=== PATIENT | female | born 1965 | race Caucasian/White ===

== ENCOUNTER 2023-02-24 08:20 | Emergency (ER) | payer BC, SELFPAY ==
[2023-02-24 08:29] VITALS: BP 117/70; PULSE 85; RESP 16; TEMP 36.7; O2SAT 98; BMI 22.0
--- NOTE | 2023-02-24 09:07 | ED_ITS ---
HPI - General Adult General Chief complaint: Allergic Reaction Stated complaint: medication side effects Time Seen by Provider: 02/24/23 08:49 History of Present Illness HPI narrative: This 57-year-old female comes in reporting adverse effects from a medication that she took last evening. She has rheumatoid arthritis and is taking Humira and as result of this she has some fungal infections on her skin mostly in her scalp. She also incidentally has a urinary tract infection. She has been taking Diflucan and tolerates this well. She was prescribed griseofulvin and Bactrim recently. She has not taken the Bactrim for her urinary tract infection yet. She did take the antifungal medicine last night at about 6:00 p.m. and this morning she felt like her mouth and face was more puffy. She wanted to come into urgent care but it was not open so she presented here. She states lissette t she is feeling better. Related Data Allergies Allergy/AdvReac Type Severity Reaction Status Date / Time griseofulvin Allergy Intermediate Swelling Verified 02/24/23 08:42 of the Eye Penicillins Allergy Intermediate Rash Verified 02/24/23 08:39 Review of Systems Status of ROS: Reports: 10 or more systems reviewed and unremarkable except as noted in History and below Narrative: Constitutional: No fevers, no weight gain or loss. Eyes: No discharge. No vision changes. HENT: No congestion, no sore throat, no ear pain. Cardiovascular: No chest pain, no palpitations. Respiratory: No shortness of breath, no wheezes, no cough. Gastrointestinal: No abdominal pain, no vomiting, no diarrhea. Genitourinary: Dysuria symptoms related to urinary tract infection. Musculoskeletal: Normal range of motion. Skin: Tinea capitis symptoms. Neurological: No dizziness, weakness, sensory change, speech change. Endo/Heme/Allergies: No bruising or bleeding. No polydipsia. Pysch: no suicidality, no anxiety, no insomnia. All other systems reviewed and are negative. Exam Narrative: Exam Narrative: Constitutional: Well-developed, well-nourished, no acute distress. HEENT: Normocephalic, atraumatic. Neck: Normal range of motion. Nontender. Supple. Heart: Regular. No murmurs. Normal rate. Intact distal pulses. Lungs: Clear to auscultation. No chest discomfort. No wheezes, rhonchi, or rales. Abdomen: Normal bowel sounds. Nontender. No rebound tenderness. Genitalia: Deferred. Back: No midline tenderness. Normal range of motion. Extremities: Normal range of motion. No injury. Skin: Intact. No rash. Warm. No erythema or pallor. Neurologic: No altered sensation. No weakness. Alert and oriented. Psychiatric: No suicidality. No anxiety or depression. No insomnia. Nursing notes and vitals signs are reviewed. Const: Vital Signs, click to edit/add: Vital Signs - 24 hr 02/24/23 08:29 Temperature 98.1 F Pulse Rate [Pulse Oximeter] 85 Respiratory Rate 16 [facility] 117/70 Pulse Oximetry 98 Course Vital Signs Vital signs: Initial Vital Signs Temperature 98.1 F 02/24/23 08:29 Temperature Source Temporal Artery Scan 02/24/23 08:29 Pulse Rate 85 02/24/23 08:29 Respiratory Rate 16 02/24/23 08:29 Blood Pressure 117/70 02/24/23 08:29 Blood Pressure Mean 85 02/24/23 08:29 Pulse Oximetry 98 02/24/23 08:29 Vital Signs Temperature 98.1 F 02/24/23 08:29 Pulse Rate 85 02/24/23 08:29 Respiratory Rate 16 02/24/23 08:29 Blood Pressure 117/70 02/24/23 08:29 Pulse Oximetry 98 02/24/23 08:29 Temperature 98.1 F 02/24/23 08:29 Pulse Rate 85 02/24/23 08:29 Respiratory Rate 16 02/24/23 08:29 Blood Pressure 117/70 02/24/23 08:29 Pulse Oximetry 98 02/24/23 08:29 Medical Decision Making MDM Narrative Medical decision making narrative: This patient took one tablet of griseofulvin last evening and did not take any other medications at that time. She began having symptoms as described above. It seems that she is reacting to this particular medicine and I advised her to discontinue using it. She has prescription for Diflucan and Bactrim and is encouraged use ease medicines as directed. I also advised using Lotrimin topical to treat her skin conditions. Additionally she may use azo to treat her dysuria symptoms. I did discuss lab and imaging options which the patient declined in a process of shared decision making. She is feeling better and is not showing any sign of anaphylaxis or angioedema. She does not have any skin rash typical of allergy. Discharge Plan Discharge Clinical Impression: Adverse reaction to drug Patient Disposition: Home, Self-Care Condition: Improved Additional Instructions: Avoid using griseofulvin. Take Bactrim and Diflucan as prescribed. Also consider using Azo and Lotrimin as indicated. Follow up with primary physician or return if worsening. Stand Alone Forms: [facility] Info Instructions
== END 2023-02-24 09:24 | disposition home or self-care (01) ==
PROVIDERS: Emergency Provider Emergency Medicine Emergency Medical Services
DX: R22.0 Localized swelling, mass and lump, head (principal); T36.7X5A Adverse effect of antifungal antibiotics, systemically used, initial encounter
CPT/HCPCS: 99282; 99284